=== PATIENT | male | born 1960 | race Caucasian/White ===

== ENCOUNTER 2018-02-23 19:53 | Inpatient (IN) | payer BC ==
[~2018-02-23] VITALS: Ht 175.3 cm; Wt 86.4 kg
[2018-02-24] VITALS (8 sets, daily range): BP systolic 89–112; BP diastolic 55–67; Ht 175.3 cm; Wt 86.4 kg
[2018-02-24 06:03] LABS: HEMATOCRIT 44.7 % (42.0-54.0); HEMOGLOBIN 15.4 g/dL (13.5-17.5); MCH 32.8 pg (26.0-34.0); MCHC 34.5 g/dL (31.0-37.0); MCV 95.3 fL (80.0-100.0); MEAN PLATELET VOLUME 11.8 fL (7.4-10.4); PLATELET COUNT 142 10x3/uL (130-400); RBC 4.69 10x6/uL (4.20-6.10); RDW 13.5 % (11.5-14.5); WBC 13.3 10x3/uL (4.8-10.8)
[2018-02-24 06:09] LABS: ALBUMIN 2.9 g/dL (3.4-5.0); ANION GAP 10.5 mmol/L (8-16); BILIRUBIN - TOTAL 1.53 mg/dL (0.2-1.3); CALCIUM 8.4 mg/dL (8.5-10.1); CARBON DIOXIDE 28.2 mmol/L (21.0-32.0); CREATININE - SERUM 1.4 mg/dL (0.6-1.3); POTASSIUM - SERUM 4.7 mmol/L (3.5-5.1); PROTEIN - SERUM 6.5 g/dL (6.4-8.2)
[2018-02-24 06:50] LABS: LYMPHOCYTES 6 % (15-50); MONOCYTES 3 % (2-11); NEUTROPHILS 88 % (40-80)
[2018-02-24 06:51] LABS: PLATELET ESTIMATE NORMAL
[2018-02-24 13:41] LABS: AMYLASE - SERUM 22 U/L (25-115); LIPASE 60 U/L (73-393)
[2018-02-25 04:46] LABS: BASOPHILS 0.1 % (0-2); EOSINOPHILS 0.3 % (0-7); HEMATOCRIT 40.9 % (42.0-54.0); HEMOGLOBIN 13.9 g/dL (13.5-17.5); IMMATURE GRANULOCYTES 0.3 % (0-5); LYMPHOCYTES 6.9 % (15-50); MCH 32.5 pg (26.0-34.0); MCV 95.6 fL (80.0-100.0); MONOCYTES 9.1 % (2-11); NEUTROPHILS 83.3 % (40-80); RBC 4.28 10x6/uL (4.20-6.10); RDW 13.4 % (11.5-14.5)
[2018-02-25 05:04] LABS: PLATELET COUNT 113 10x3/uL (130-400)
[2018-02-25 05:08] LABS: ALBUMIN 2.5 g/dL (3.4-5.0); ANION GAP 12.3 mmol/L (8-16); BILIRUBIN - TOTAL 0.9 mg/dL (0.2-1.3); CALCIUM 8.1 mg/dL (8.5-10.1); CARBON DIOXIDE 25.7 mmol/L (21.0-32.0); CREATININE - SERUM 1.2 mg/dL (0.6-1.3); PROTEIN - SERUM 6.1 g/dL (6.4-8.2)
[2018-02-25 05:40] VITALS: BP 140/79
[2018-02-25 09:20] VITALS: BP 107/62
[2018-02-25 13:15] VITALS: BP 96/55
[2018-02-25 16:40] VITALS: BP 106/62
[2018-02-25 22:17] VITALS: BP 112/74
[2018-02-26 03:56] VITALS: BP 90/61
[2018-02-26 05:38] LABS: BASOPHILS 0 % (0-2); EOSINOPHILS 0 % (0-7); HEMATOCRIT 34.3 % (42.0-54.0); HEMOGLOBIN 11.7 g/dL (13.5-17.5); IMMATURE GRANULOCYTES 0.1 % (0-5); LYMPHOCYTES 4.8 % (15-50); MCH 32.6 pg (26.0-34.0); MCHC 34.1 g/dL (31.0-37.0); MCV 95.5 fL (80.0-100.0); MEAN PLATELET VOLUME 12.2 fL (7.4-10.4); MONOCYTES 4.7 % (2-11); NEUTROPHILS 90.4 % (40-80); RBC 3.59 10x6/uL (4.20-6.10); RDW 13.4 % (11.5-14.5); WBC 8.9 10x3/uL (4.8-10.8)
[2018-02-26 05:54] LABS: PLATELET COUNT 141 10x3/uL (130-400)
[2018-02-26 06:08] LABS: ANION GAP 13.4 mmol/L (8-16); BILIRUBIN - TOTAL 0.3 mg/dL (0.2-1.3); CALCIUM 7.7 mg/dL (8.5-10.1); CARBON DIOXIDE 21.8 mmol/L (21.0-32.0); CREATININE - SERUM 1.1 mg/dL (0.6-1.3); POTASSIUM - SERUM 4.2 mmol/L (3.5-5.1); PROTEIN - SERUM 5.6 g/dL (6.4-8.2)
[2018-02-26 08:06] VITALS: BP 93/59
[2018-02-26 12:44] VITALS: BP 114/82
[2018-02-26 16:25] VITALS: BP 95/59
[2018-02-27 03:50] VITALS: BP 124/74
[2018-02-27 05:40] LABS: BASOPHILS 0 % (0-2); EOSINOPHILS 0 % (0-7); HEMOGLOBIN 11.5 g/dL (13.5-17.5); IMMATURE GRANULOCYTES 0.2 % (0-5); LYMPHOCYTES 8.3 % (15-50); MCH 32.1 pg (26.0-34.0); MCHC 33.8 g/dL (31.0-37.0); MEAN PLATELET VOLUME 11.7 fL (7.4-10.4); MONOCYTES 7.6 % (2-11); NEUTROPHILS 83.9 % (40-80); RBC 3.58 10x6/uL (4.20-6.10); RDW 13.1 % (11.5-14.5); WBC 11.1 10x3/uL (4.8-10.8)
[2018-02-27 05:54] LABS: PLATELET COUNT 177 10x3/uL (130-400)
[2018-02-27 05:59] LABS: ALBUMIN 2.1 g/dL (3.4-5.0); ALKALINE PHOSPHATASE 77 U/L (46-116); ALT (SGPT) 73 U/L (10-68); BILIRUBIN - TOTAL 0.24 mg/dL (0.2-1.3); CALCIUM 7.8 mg/dL (8.5-10.1); CARBON DIOXIDE 26.3 mmol/L (21.0-32.0); CHLORIDE - SERUM 103 mmol/L (98-107); POTASSIUM - SERUM 3.8 mmol/L (3.5-5.1); PROTEIN - SERUM 5.8 g/dL (6.4-8.2); SODIUM 139 mmol/L (136-145); UREA NITROGEN 15 mg/dL (7-18); eGFR NON AFRICAN AMERICAN 81 mL/min (90-120)
[2018-02-27 06:01] LABS: CALC OSMOLALITY 280 mosm/kg (275-300); GLUCOSE 129 mg/dL (74-106)
[2018-02-27 08:14] VITALS: BP 114/87
[2018-02-27] MEDS ORDERED: AUGMENTIN 875-11 TAB PO (08:30)
[2018-02-27] MEDS ORDERED: PERCOCET 7.5/321 TAB PO (08:31)
== END 2018-02-27 14:12 | disposition home or self-care (01) | DRG 418 ==
LOC: D.MS 19:53 → D.SDCHOLD 20:33 → D.MS 22:00
PROVIDERS: Family Medicine; Internal Medicine Nephrology; Surgery
PROC: 0FT44ZZ Resection of Gallbladder, Percutaneous Endoscopic Approach (ICD-10-PCS; principal; 2018-02-25 09:30)
DX: K81.0 Acute cholecystitis (principal); E87.1 Hypo-osmolality and hyponatremia; N17.9 Acute kidney failure, unspecified; E86.0 Dehydration; F17.200 Nicotine dependence, unspecified, uncomplicated